=== PATIENT | female | born 1985 | race Native Hawaiian/Other Pacific Islander ===

== ENCOUNTER 2024-07-20 17:25 | Emergency (ER) | payer MEDICAID ==
[~2024-07-20] VITALS: Ht 167.6 cm; Wt 94.1 kg
[2024-07-20 17:37] VITALS: BP 124/87; PULSE 78; RESP 18; TEMP 97.7; O2SAT 100
[2024-07-20 17:50] LABS: COVID AG,FIA SOURCE NASAL SWAB
[2024-07-20] MEDS: IBUPROFEN 600 MG TABLET PO ONE (18:12)
[2024-07-20] MEDS: AMOX TR/POT CLAV 875 MG/125 MG TABLET PO ONE (18:12)
[2024-07-20 18:13] LABS: INFLUENZA TYPE A NEGATIVE FOR TYPE A (NEGATIVE); INFLUENZA TYPE B NEGATIVE FOR TYPE B (NEGATIVE); SARS-COV2 (COVID) ANTIGEN,FIA Negative (Negative)
[2024-07-20] MEDS ORDERED: AMOX-457 PO (18:13)
[2024-07-20] MEDS ORDERED: ACET-3385 PO (18:13)
[2024-07-20] MEDS ORDERED: IBUP-1492 PO (18:13)
== END 2024-07-20 18:48 | disposition home or self-care (01) ==
LOC: EMS 17:26
DX: H66.93 Otitis media, unspecified, bilateral (principal); Z91.018 Allergy to other foods; Z20.822 Contact with and (suspected) exposure to COVID-19
CPT/HCPCS: 87804; 99283